=== PATIENT | male | born 1985 | race Caucasian/White ===

== ENCOUNTER 2020-06-05 19:26 | Emergency (ER) | payer OTHER ==
[~2020-06-05] VITALS: Ht 175.3 cm; Wt 75.0 kg
--- NOTE | 2020-06-05 19:44 | PHYS DOC ---
Past History Past Medical History: MRSA (ELMER LEE APRN) Adult General Chief Complaint Chief Complaint: ANKLE PROBLEM HPI HPI Patient is a 35-year-old male patient who presents to the ED today complaining of mild left lateral ankle pain that began couple minutes ago while playing soccer, patient reports his left ankle dislocated and relocated itself back in line. Patient states most of the pain is on the lateral aspect, he describes the pain as sharp and constant. Denies anything specifically relieving the pain but states certain movements as well as touching the left lateral ankle exacerbates the pain. (ELMER LEE APRN) Review of Systems Review of Systems Constitutional: Denies fever or chills [] : Denies dysuria or hematuria [] Musculoskeletal: Reports left ankle pain Integument: Denies rash or skin lesions [] Neurologic: Denies headache, focal weakness or sensory changes [] All other systems were reviewed and found to be within normal limits, except as documented in this note. (ELMER LEE APRN) Physical Exam Physical Exam Constitutional: Well developed, well nourished, no acute distress, non-toxic appearance. Skin: Warm, dry, no erythema, no rash. [] Back: No tenderness, no CVA tenderness. [] Extremities: Left lateral ankle with mild soft tissue swelling, tenderness on palpation of the left lateral ankle. Full range of motion to the left ankle foot and toes. +2 left pedal pulse. Cap refill less than 2 seconds to left toes. Sensation intact to the left lower extremity. Neurologic: Alert and oriented X 3, normal motor function, normal sensory function, no focal deficits noted. [] Psychologic: Affect normal, judgement normal, mood normal. [] (ELMER LEE APRN) EKG EKG [] (ELMER LEE APRN) Radiology/Procedures Radiology/Procedures []PROCEDURE: ANKLE LEFT 3V Exam: Left ankle 3 views INDICATION: Pain, rolled ankle TECHNIQUE: Frontal, lateral and oblique views of the left ankle Comparisons: None FINDINGS: There is soft tissue swelling overlying the lateral malleolus. Bone mineralization is normal. No acute or healed fractures. Joint spaces are well-maintained. IMPRESSION: Soft tissue swelling overlying the lateral malleus without underlying osseous abnormality. Electronically signed by: Jericho Bowen MD (06/05/2020 9:11 PM) [facility] DICTATED AND SIGNED BY: JERICHO BOWEN MD DATE: 06/05/202110 CC: ELMER LEE APRN; PCP,UNKNOWN ~ (ELMER LEE APRN) Heart Score Risk Factors: Risk Factors: DM, Current or recent (<one month) smoker, HTN, HLP, family history of CAD, obesity. Risk Scores: Risk Factors: DM, Current or recent (<one month) smoker, HTN, HLP, family history of CAD, obesity. (ELMER LEE APRN) Course & Med Decision Making Course & Med Decision Making Pertinent Labs and Imaging studies reviewed. (See chart for details) This is a 35-year-old male patient presenting to the ED today with left ankle pain that began while playing soccer. He rolled his ankle. Left ankle x-rays interpreted by radiologist are negative for any acute findings. Aircast applied to the left ankle by the ED RN, neurovascular exam is intact. Ice elevation encouraged. Follow-up with orthopedic doctor in 1 week if pain persist. Weightbearing as tolerated. (ELMER LEE APRN) Dragon Disclaimer Dragon Disclaimer This electronic medical record was generated, in whole or in part, using a voice recognition dictation system. (ELMER LEE APRN) Attending Co-Sign The patient was seen and interviewed as well as examined at the bedside. The chart was reviewed. The case was discussed. Agree with the plan of care. (CHASE TUBBS DO) Departure Departure: Impression: Primary Impression: Left ankle sprain Disposition: 01 [place] HOME SELF CARE/HOMELESS Condition: STABLE Referrals: PCP,UNKNOWN (PCP) ALEXA GARVEY MD follow up in 1-2 weeks Patient Instructions: Ankle Sprain Additional Instructions: You are seen for left ankle pain, your left ankle x-rays are negative for any acute findings, you were provided an Aircast, wear it as tolerated. Try to ice and elevate the extremity. Take [id number] pain relievers especially anti-inflammatories as needed for pain. Follow-up with your own doctor or the provided orthopedic doctor in 1 week if pain persists Problem Qualifiers Primary Impression: Left ankle sprain Encounter type: initial encounter Involved ligament of ankle: unspecified ligament Qualified Codes: S93.402A - Sprain of unspecified ligament of left ankle, initial encounter ELMER LEE APRN Jun 05, 2020 19:44 CHASE TUBBS DO Jun 06, 2020 00:25
--- NOTE | 2020-06-05 21:13 | RAD ---
Exam: Left ankle 3 views INDICATION: Pain, rolled ankle TECHNIQUE: Frontal, lateral and oblique views of the left ankle Comparisons: None FINDINGS: There is soft tissue swelling overlying the lateral malleolus. Bone mineralization is normal. No acute or healed fractures. Joint spaces are well-maintained. IMPRESSION: Soft tissue swelling overlying the lateral malleus without underlying osseous abnormality. Electronically signed by: Jericho Cheung MD (06/05/2020 9:11 PM) [facility]
[2020-06-05 21:26] VITALS: BP 132/70
== END 2020-06-05 21:27 | disposition home or self-care (01) ==
LOC: ER 19:26
DX: S93.492A Sprain of other ligament of left ankle, initial encounter (principal); R60.0 Localized edema; R20.2 Paresthesia of skin; Z86.14 Personal history of Methicillin resistant Staphylococcus aureus infection; X58.XXXA Exposure to other specified factors, initial encounter; Y93.66 Activity, soccer; Y92.89 Other specified places as the place of occurrence of the external cause; Y99.8 Other external cause status
CPT/HCPCS: 73610; 99283; L4350

== ENCOUNTER 2021-07-24 13:27 | Emergency (ER) | payer OTHER ==
[~2021-07-24] VITALS: Ht 175.3 cm; Wt 78.4 kg
--- NOTE | 2021-07-24 14:33 | RAD ---
Exam: CT abdomen/pelvis without intravenous contrast Indication: Left lower quadrant abdominal pain onset last night Comparison: None Technique: Helical CT imaging performed of the abdomen and pelvis without the use of intravenous cont rast. Sagittal and coronal reformats were obtained. One or more of the following individualized dose reduction techniques were utilized for this examinat ion: 1. Automated exposure control 2. Adjustment of the mA and/or kV according to patient size 3. Use of iterative reconstruction technique. Findings: Inherently limited evaluation without intravenous contrast. Lower chest: The lung bases are clear. Heart is normal in size. Liver: The liver is normal in size. There are several subcentimeter hypodensities in the liver, too s mall to characterize. Gallbladder/Biliary Tree: Normal. Pancreas: Normal. Spleen: Normal. Adrenal Glands: . Kidneys/Ureters/Bladder: Kidneys are normal in size. No nephrolithiasis or hydronephrosis. Ureters an d bladder are normal Reproductive Organs: Prostate gland is normal. Stomach, small bowel, and colon: The stomach is normal. No small bowel obstruction. Appendix is alexis l. Possibly a few diverticula in the sigmoid colon. No acute diverticulitis. Vasculature: Abdominal aorta is normal in caliber. Lymph Nodes: No lymphadenopathy. Peritoneum and retroperitoneum: No free fluid or free air. Bones: No acute osseous abnormality. Miscellaneous: Small fat-containing bilateral inguinal hernias. IMPRESSION: 1. No acute abnormality in the abdomen and pelvis. 2. Possibly a few small diverticula in the sigmoid colon without evidence of acute diverticulitis. 3. There are a few subcentimeter hypodensities in the liver, too small to characterize but likely si mple cysts. 4. Small fat-containing inguinal hernias. Electronically signed by: Nimo Dickerson MD (07/24/2021 2:31 PM) [id number]
--- NOTE | 2021-07-24 15:15 | PHYS DOC ---
Past History Past Medical History: No Pertinent History Past Surgical History: No Surgical History Alcohol Use: Occasionally General Adult EDM: Chief Complaint: ABDOMINAL PAIN HPI: HPI: 36-year-old male presents with 2-day history of left lower quadrant abdominal pain. The patient had pain yesterday that seemed to radiate more into the groin area. He thought he might have a hip flexor strain. This morning, the pain is moved up more to the left lower quadrant at the top of the ileum. The patient went to his primary physician who ordered an outpatient CT, but could not get approval for the CT scan. Patient came into the emergency room for rule out diverticulitis or other significant finding. Patient denies fever or chills. H is bowel movements have been normal. Denies dysuria or increased urinary frequency. Review of Systems: Review of Systems: Constitutional: Denies fever or chills Eyes: Denies change in visual acuity HENT: Denies nasal congestion or sore throat Respiratory: Denies cough or shortness of breath Cardiovascular: Denies chest pain or edema GI: Left lower quadrant abdominal pain. Denies nausea, vomiting, bloody stools or diarrhea : Denies dysuria Musculoskeletal: Denies back pain or joint pain Integument: Denies rash Neurologic: Denies headache, focal weakness or sensory changes Endocrine: Denies polyuria or polydipsia Lymphatic: Denies swollen glands Psychiatric: Denies depression or anxiety Allergies: Allergies: Allergies Coded Allergies Type Severity Reaction Last Updated Verified Penicillins Allergy Severe 06/05/20 Yes Physical Exam: PE: Constitutional: Well developed, well nourished, no acute distress, non-toxic appearance. [] HENT: Normocephalic, atraumatic, bilateral external ears normal, oropharynx moist, no oral exudates, nose normal. [] Eyes: PERRLA, EOMI, conjunctiva normal, no discharge. [] Neck: Normal range of motion, no tenderness, supple, no stridor. [] Cardiovascular:Heart rate regular rhythm, no murmur [] Lungs & Thorax: Bilateral breath sounds clear to auscultation [] Abdomen: Bowel sounds normal, soft, no tenderness, no masses, no pulsatile masses. [] Skin: Warm, dry, no erythema, no rash. [] Back: No tenderness, no CVA tenderness. [] Extremities: No tenderness, no cyanosis, no clubbing, ROM intact, no edema. [] Neurologic: Alert and oriented X 3, normal motor function, normal sensory function, no focal deficits noted. [] Psychologic: Affect normal, judgement normal, mood normal. [] Current Patient Data: Vital Signs: Vital Signs Date Time Temp Pulse Resp B/P (MAP) Pulse Ox O2 Delivery O2 Flow Rate FiO2 07/24/21 13:47 98.6 89 18 131/74 (93) 97 Room Air EKG: EKG: [] Radiology/Procedures: Radiology/Procedures: [] Impressions: Exam: CT abdomen/pelvis without intravenous contrast Indication: Left lower quadrant abdominal pain onset last night Comparison: None Technique: Helical CT imaging performed of the abdomen and pelvis without the use of intravenous contrast. Sagittal and coronal reformats were obtained. One or more of the following individualized dose reduction techniques were utilized for this examination: 1. Automated exposure control 2. Adjustment of the mA and/or kV according to patient size 3. Use of iterative reconstruction technique. Findings: Inherently limited evaluation without intravenous contrast. Lower chest: The lung bases are clear. Heart is normal in size. Liver: The liver is normal in size. There are several subcentimeter hypodensities in the liver, too small to characterize. Gallbladder/Biliary Tree: Normal. Pancreas: Normal. Spleen: Normal. Adrenal Glands: . Kidneys/Ureters/Bladder: Kidneys are normal in size. No nephrolithiasis or hydronephrosis. Ureters and bladder are normal Reproductive Organs: Prostate gland is normal. Stomach, small bowel, and colon: The stomach is normal. No small bowel obstruction. Appendix is normal. Possibly a few diverticula in the sigmoid colon. No acute diverticulitis. Vasculature: Abdominal aorta is normal in caliber. Lymph Nodes: No lymphadenopathy. Peritoneum and retroperitoneum: No free fluid or free air. Bones: No acute osseous abnormality. Miscellaneous: Small fat-containing bilateral inguinal hernias. IMPRESSION: 1. No acute abnormality in the abdomen and pelvis. 2. Possibly a few small diverticula in the sigmoid colon without evidence of acute diverticulitis. 3. There are a few subcentimeter hypodensities in the liver, too small to characterize but likely simple cysts. 4. Small fat-containing inguinal hernias. Electronically signed by: Nimo Dickerson MD (07/24/2021 2:31 PM) [id number] DICTATED AND SIGNED BY: NIMO DICKERSON MD DATE: 07/24/21 1426 CC: CHASE TUBBS DO; EMILY TRAYLOR; EMERGENCY,DEPARTMENT ~MTH0 0 Heart Score: C/O Chest Pain: N/A Risk Factors: Risk Factors: DM, Current or recent (<one month) smoker, HTN, HLP, family history of CAD, obesity. Risk Scores: Score 0 - 3: 2.5% MACE over next 6 weeks - Discharge Home Score 4 - 6: 20.3% MACE over next 6 weeks - Admit for Clinical Observation Score 7 - 10: 72.7% MACE over next 6 weeks - Early Invasive Strategies Course & Med Decision Making: Course & Med Decision Making Pertinent Labs and Imaging studies reviewed. (See chart for details) The patient CT of the abdomen pelvis is negative for acute findings. He does have time inguinal hernias. I have discussed his results with the patient. He is reassured. He is stable for discharge at this time. [] Dragon Disclaimer: Dragchasidy Disclaimer: This electronic medical record was generated, in whole or in part, using a voice recognition dictation system. Departure Departure: Impression: Primary Impression: Left lower quadrant abdominal pain Disposition: HOME / SELF CARE / HOMELESS Condition: STABLE Referrals: EMILY TRAYLOR (PCP) Patient Instructions: Abdominal Pain (Nonspecific) CHASE TUBBS DO Jul 24, 2021 15:15
[2021-07-24 15:23] VITALS: BP 119/83
== END 2021-07-24 15:21 | disposition home or self-care (01) ==
LOC: ER 13:27
DX: K40.90 Unilateral inguinal hernia, without obstruction or gangrene, not specified as recurrent (principal); R10.32 Left lower quadrant pain; Z88.0 Allergy status to penicillin
CPT/HCPCS: 74176; 99284-25